=== PATIENT | female | born 1965 | race Two or more races ===

== ENCOUNTER 2021-01-03 10:50 | Emergency (ER) | payer MEDICAID ==
[~2021-01-03] VITALS: Ht 170.2 cm; Wt 81.6 kg
[2021-01-03 10:52] VITALS: BP 128/79
[2021-01-03] MEDS ORDERED: KETOROLAC TROMETH 60MG/2ML VIAL IM ONE (14:30)
== END 2021-01-03 14:33 | disposition home or self-care (01) ==
LOC: ER 10:50 → EDBD 10:50 → ER 14:33
DX: S39.012A Strain of muscle, fascia and tendon of lower back, initial encounter (principal); F17.210 Nicotine dependence, cigarettes, uncomplicated; I10 Essential (primary) hypertension; X58.XXXA Exposure to other specified factors, initial encounter; Y93.89 Activity, other specified; Y92.89 Other specified places as the place of occurrence of the external cause; Y99.8 Other external cause status
CPT/HCPCS: 72100; 96372; 99283; J1885